=== PATIENT | female | born 1995 | race American Indian/Alaskan Native ===

== ENCOUNTER 2019-02-06 19:48 | Emergency (ER) | payer SELFPAY ==
--- NOTE | 2019-02-06 20:39 | Emergency Department Report ---
Blank Doc - Documentation Documentation: 23-year-old female that presents with left hand pain. This initial assessment/diagnostic orders/clinical plan/treatment(s) is/are subject to change based on patient's health status, clinical progression and re- assessment by fellow clinical providers in the ED. Further treatment and workup at subsequent clinical providers discretion. Patient/guardians urged not to elope from the ED as their condition may be serious if not clinically assessed and managed. Initial orders include: 1- Patient sent to [facility] for further evaluation and treatment 2- xrays
[2019-02-06 20:40] VITALS: BP 120/77
--- NOTE | 2019-02-06 21:22 | XRay Report ---
LEFT HAND 3 VIEWS INDICATION / CLINICAL INFORMATION: hand pain. COMPARISON: None available. FINDINGS: No significant skeletal abnormality. Signer Name: Herbert Cuellar MD FACSherrie Signed: 02/06/2019 9:17 PM Workstation Name: [id number]
--- NOTE | 2019-02-07 00:15 | Emergency Department Report ---
Upper Extremity - HPI Chief Complaint: Extremity Injury, Upper Stated Complaint: PAIN RT THUMB/NUMBNESS Time Seen by Provider: 02/06/19 20:38 Upper Extremity: Left Thumb Occurred When: 2 Days Mechanism: Unsure Severity: mild, moderate Symptoms: Yes Pain with Movement, Yes Numbness, No Deformity, No Limited Range of Movement, No Weakness, No Swelling, No Bruising/Ecchymosis, No Laceration or Abrasion Other History: Holli is a 23 yo female with hx of RA who presents with left thumb pain and numbness for 2 days. Ibuprofen did not provide any relief. No trauma. No paralysis. Works in a [employer]. No PCP. ED Review of Systems ROS: Stated complaint: PAIN RT THUMB/NUMBNESS Other details as noted in HPI Constitutional: denies: fever, malaise Musculoskeletal: arthralgia, myalgia. denies: joint swelling Neurological: numbness. denies: headache, weakness ED Past Medical Hx - Past Medical History Previous Medical History?: Yes Hx Arthritis: Yes (RA) - Surgical History Past Surgical History?: No - Social History Smoking Status: Never Smoker Substance Use Type: None - Medications Home Medications: Home Medications Medication Instructions Recorded Confirmed Last Taken Type Prednisone [predniSONE 10 mg 10 mg PO .TAPER #1 tab.ds.pk 02/07/19 Unknown Rx (6-Day Pack, 21 Tabs)] Upper Extremity Exam - Exam General: Vital signs noted. No distress. Alert and acting appropriately. Head and Torso: No HEENT Abnormality Shoulder Exam: Yes Normal Range of Motion in Shoulder, No Shoulder Tenderness, No Clavicle Tenderness Arm Exam: No Arm/Humerus Tenderness, No Arm Deformity Elbow: Yes Normal Range of Motion in Elbow, No Elbow Tenderness, No Elbow Deformity Forearm: No Forearm Tenderness, No Forearm Deformity, No Pain with Pronation, No Pain with Supination Wrist: Yes Normal ROM in Wrist, No Wrist Tenderness, No Wrist Deformity, No Snuffbox Tenderness, No Pain with Axial Thumb Compression Hand: Yes Normal ROM in Digit(s), No Hand Tenderness, No Hand Deformity, No Digit Tenderness, No Digit(s) Deformity, No Tendon Dysfunction CMS Exam: Yes Normal Distal Pulses, Yes Normal Capillary Refill, No Broken Skin, No Normal Distal Sensation ED Course Vital Signs 02/06/19 02/06/19 20:30 20:38 Temperature 98.2 F 98.2 F Pulse Rate 79 75 Respiratory 18 18 Rate Blood Pressure 124/77 120/77 O2 Sat by Pulse 100 100 Oximetry ED Medical Decision Making - Radiology Data Radiology results: report reviewed Radiologist's impression of left hand 3 views no significant skeletal abnormality - Medical Decision Making Left thumb pain suspect de Quervain's tenosynovitis: Prescribed prednisone taper referred to orthopedic surgeon Critical care attestation.: If time is entered above; I have spent that time in minutes in the direct care of this critically ill patient, excluding procedure time. ED Disposition Clinical Impression: De Quervain's tenosynovitis, left Disposition: [id number] TO HOME OR SELFCARE Is pt being admited?: No Does the pt Need Aspirin: No Condition: Stable Instructions: De Quervain Disease (ED), Tenosynovitis (ED) Prescriptions: Prednisone [predniSONE 10 mg (6-Day Pack, 21 Tabs)] 10 mg PO .TAPER #1 tab.ds.pk Forms: Work/School Release Form(ED)
[2019-02-07] MEDS ORDERED: predniSONE 20 MG TAB PO ONE (00:16)
[2019-02-07] MEDS ORDERED: HYDROcodone/ACETAMINOPHEN 5-325 MG TAB PO ONE (00:16)
== END 2019-02-07 00:55 | disposition home or self-care (01) ==
LOC: ED 19:48
DX: M65.4 Radial styloid tenosynovitis [de Quervain] (principal); M06.9 Rheumatoid arthritis, unspecified; Z79.899 Other long term (current) drug therapy
CPT/HCPCS: 73130; 99283; J7512